=== PATIENT | male | born 1950 | race Caucasian/White ===

== ENCOUNTER 2017-10-02 09:17 | Emergency (ER) | payer SELFPAY ==
[~2017-10-02] VITALS: Ht 172.7 cm; Wt 90.0 kg
[2017-10-02] MEDS ORDERED: SODIUM CHLORIDE 0.9% 1,000 ML IV ONE (09:32)
[2017-10-02] MEDS ORDERED: ONDANSETRON HCL 4MG/2ML VIAL IV STA (09:32)
[2017-10-02 09:52] LABS: BASOPHILS % 0.9 % (0.0-2.0); HEMATOCRIT. 34.7 % (42.0-52.0); HEMOGLOBIN. 11.1 g/dL (14.0-18.0); LYMPHOCYTES % 18.4 % (20.0-50.0); MEAN CORPUSCULAR HEMOGLOBIN 24.8 pg (28.0-32.0); MEAN CORPUSCULAR VOLUME 77.5 fL (80.0-94.0); MEAN PLATELET VOLUME 7.4 fl (7.4-10.4); MONOCYTES % 6.6 % (2.0-8.0); NEUTROPHILS % 73.1 % (40.0-76.0); PLATELET 229 x1000/uL (130-400); RED BLOOD CELL COUNT 4.48 mill/uL (4.7-6.1)
[2017-10-02 10:00] LABS: PROTHROMBIN TIME 10.3 sec (9.4-11.6)
[2017-10-02 10:05] LABS: CLARITY URINE CLEAR (CLEAR); COLOR URINE YELLOW (YELLOW); KETONES URINE NEGATIVE (NEGATIVE); LEUKOCYTE ESTERASE URINE NEGATIVE (NEGATIVE); NITRITE URINE NEGATIVE (NEGATIVE); OCCULT BLOOD URINE NEGATIVE (NEGATIVE); PROTEIN URINE NEGATIVE (NEGATIVE); SPECIFIC GRAVITY URINE 1.019 (1.005-1.030); UROBILINOGEN URINE 0.2 E.U./dL (0.2-1.0)
[2017-10-02 10:10] LABS: CARBON DIOXIDE 26 mEq/L (21-32); CHLORIDE 96 mEq/L (98-107); TROPONIN I < 0.02 ng/mL (0.00-0.04)
[2017-10-02 10:39] LABS: *AMPHETAMINES SCREEN URINE NEGATIVE (NEGATIVE); *BARBITURATES SCREEN URINE NEGATIVE (NEGATIVE); *BENZODIAZEPINES SCREEN URINE NEGATIVE (NEGATIVE); *COCAINE SCREEN URINE NEGATIVE (NEGATIVE); CANNABINOID URINE SCREEN NEGATIVE (NEGATIVE); METHADONE URINE SCREEN NEGATIVE (NEGATIVE); OPIATES URINE SCREEN NEGATIVE (NEGATIVE); PHENCYCLIDINE URINE SCREEN NEGATIVE (NEGATIVE)
[2017-10-02 11:16] VITALS: BP 133/83
== END 2017-10-02 11:18 | disposition home or self-care (01) ==
LOC: ER 09:33
DX: T65.91XA Toxic effect of unspecified substance, accidental (unintentional), initial encounter (principal); E78.00 Pure hypercholesterolemia, unspecified; I10 Essential (primary) hypertension; E11.9 Type 2 diabetes mellitus without complications; Z88.0 Allergy status to penicillin; Y92.89 Other specified places as the place of occurrence of the external cause
CPT/HCPCS: 36415; 71010; 80053; 80305; 81001; 83880; 84484; 85025; 85610; 93005; 96361; 96374; 99285; J2405; J7030; Z7610